=== PATIENT | male | born 1945 | race Caucasian/White ===

== ENCOUNTER 2019-05-06 07:07 | Inpatient (IN) ==
[2019-04-30 16:43] LABS: Appearance,Urine CLEAR; Bacteria,Urine 0 /hpf (0); Bilirubin,Urine NEG (NEG); Color,Urine YELLOW; Culture Indicated,Urine NO; Glucose,Urine (UA) 50 mg/dL (NEG); Ketones,Urine NEG (NEG); Leukocyte Esterase,Urine NEG /uL (NEG); Nitrate,Urine NEG (NEG); Protein,Urine 100 mg/dL (NEG); Specific Gravity,Urine 1.015 (1.000-1.035); Urine Blood NEG mg/dL (<0.03); Urine Hyaline Cast 8 /lpf (0-2); Urine RBC 0 /hpf (0-1); Urine Squamous Epithelial Cell 0 /hpf (0-4); Urine WBC 0 /hpf (0-4); Urobilinogen,Urine NEG (NEG)
[2019-04-30 19:50] LABS: Basophils # (Auto) 0.1 K/mcL (0.0-0.3); Eosinophils # (Auto) 0.2 K/mcL (0.0-0.7); Granulocytes % (Auto) 60.1 % (38.0-78.0); Hematocrit 43.5 % (41.0-55.0); Hemoglobin 14.5 g/dL (13.5-16.5); Lymphocytes % (Auto) 24.6 % (15.5-49.0); Mean Cell Volume 87.1 fL (80.0-100.0); Mean Corpuscular HGB Conc 33.3 g/dL (31.0-36.0); Mean Platelet Volume 6.9 fL (7.4-10.4); Monocytes # (Auto) 0.9 K/mcL (0.1-0.9); Monocytes % (Auto) 11.3 % (1.0-12.0); Platelet Count 402 K/mcL (140-440); RBC 4.99 M/mcL (4.50-5.90); Red Cell Distribution Width 13.4 % (11.5-14.5); WBC 8.1 K/mcL (4.5-11.0)
[2019-04-30 19:54] LABS: Blood Urea Nitrogen 35 mg/dl (8-23); Calcium 10.1 mg/dl (8.6-10.4); Carbon Dioxide 26 mmol/L (22-30); Chloride 100 mmol/L (96-108); Glomerular Filtration Rate 26; Glucose 128 mg/dL (70-105)
[~2019-05-06 07:07] MED LIST: IPRATROPIUM/ALBUTEROL 3 ML AMPUL.NEB NEB PRN; SCOPOLAMINE 1 PATCH PATCH TOPICAL PRN; ceFAZolin 2 GM in DEXTROSE 5% IN WATER 50 ML IV SCH
[2019-05-06] MEDS ORDERED: PROPOFOL 200 MG/20 ML VIAL IV ONE (10:55)
[2019-05-06] MEDS ORDERED: DEXAMETHASONE 10 MG/ML VIAL IV ONE (10:55)
[2019-05-06] MEDS ORDERED: KETAMINE 100 MG/ML ML IV ONE (10:55)
[2019-05-06] MEDS ORDERED: LIDOCAINE HCL/PF 100 MG/5 ML SYRINGE IV ONE (10:55)
[2019-05-06] MEDS ORDERED: GLYCOPYRROLATE 0.2 MG/ML VIAL IV ONE (10:55)
[2019-05-06] MEDS ORDERED: PHENYLEPHRINE 10 MG/ML VIAL IV ONE (10:55)
[2019-05-06] MEDS ORDERED: ONDANSETRON 4 MG/2 ML VIAL IV ONE (10:55)
[2019-05-06] MEDS ORDERED: MIDAZOLAM 2 MG/2 ML VIAL IV ONE (10:55)
[2019-05-06] MEDS ORDERED: TRANEXAMIC ACID 1,000 MG/10 ML VIAL IV ONE ×2 (10:55→12:26)
[2019-05-06] MEDS ORDERED: ROPIVACAINE HCL/PF 30 ML VIAL IJ ONE (10:55)
[2019-05-06] MEDS ORDERED: 0.9 % SODIUM CHLORIDE 9 ML, KETOROLAC 30 MG, ROPIVACAINE HCL/PF 49.5 ML, EPINEPHrine 0.... IJ SCH (11:00)
[2019-05-06] MEDS ORDERED: GENTAMICIN SULFATE 800 MG/20 ML VIAL IR ONE (11:39)
[2019-05-06] MEDS ORDERED: MEPERIDINE 25 MG/ML SYRINGE IV PRN (12:10)
[2019-05-06] MEDS ORDERED: ACETAMINOPHEN 1,000 MG/100 ML BOTTLE IV ONE (12:10)
[2019-05-06] MEDS ORDERED: ONDANSETRON 4 MG/2 ML VIAL IV PRN ×2 (12:10→12:26)
[2019-05-06] MEDS ORDERED: IPRATROPIUM/ALBUTEROL 3 ML AMPUL.NEB NEB PRN (12:10)
[2019-05-06] MEDS ORDERED: fentaNYL 100 MCG/2 ML VIAL IV PRN (12:10)
[2019-05-06] MEDS ORDERED: METHOCARBAMOL 1,000 MG/10 ML VIAL IV PRN (12:10)
[2019-05-06] MEDS ORDERED: LACTATED RINGERS 1,000 ML IV SCH (12:15)
[2019-05-06] MEDS ORDERED: FLEETS ADULT ENEMA PR PRN (12:26)
[2019-05-06] MEDS ORDERED: HYDROcodone/APAP 10/325MG TABLET PO PRN (12:26)
[2019-05-06] MEDS ORDERED: BENZOCAINE/MENTHOL 1 LOZENGE PO PRN (12:26)
[2019-05-06] MEDS ORDERED: POLYETHYLENE GLYCOL 3350 17 GM PACKET PO PRN (12:26)
[2019-05-06] MEDS ORDERED: MAGNESIUM HYDROXIDE 30 ML ORAL.SUSP PO PRN (12:26)
[2019-05-06] MEDS ORDERED: METHOCARBAMOL 750 MG TABLET PO PRN (12:26)
[2019-05-06] MEDS ORDERED: BISACODYL 10 MG SUPP.RECT PR PRN (12:26)
--- NOTE | 2019-05-06 12:38 | Brief Operative Note ---
Date of procedure: 05/06/19 Pre-op diagnosis: DJD right knee Post-op diagnosis: same Procedure: R ELEN TKR Grafts/Implants: Yes (triathlon right knee) Anesthesia: SAMMA Surgeon: Martin Hylton Slope Hoist Operator: Neville Weems Estimated blood loss (cc): 50 Tourniquet Time (Minutes): 60 Specimens Removed/Pathology: none sent Condition: stable Disposition: PACU
--- NOTE | 2019-05-06 13:29 | XRay Report ---
CLINICAL INFORMATION: Post-op total knee. COMPARISON: None. FINDINGS: Total hip prostheses is anatomically aligned. No osseous abnormality. Periarticular gas and soft tissue swelling seen as expected. IMPRESSION: Negative Interpreted and Authenticated by: Romel James 05/06/19
[2019-05-06] MEDS: 0.9 % SODIUM CHLORIDE 1,000 ML IV SCH (13:41)
[2019-05-06] MEDS: 0.9 % SODIUM CHLORIDE 10 ML SYRINGE IV SCH ×2 (13:51→21:19)
[2019-05-06] MEDS: glipiZIDE 5 MG TABLET PO SCH (17:25)
[2019-05-06] MEDS: ceFAZolin 1 GM VIAL IV SCH (17:25)
[2019-05-06] MEDS ORDERED: metFORMIN 500 MG TABLET PO SCH (17:30)
[2019-05-06] MEDS ORDERED: SENNOSIDES 1 TABLET PO SCH (21:00)
[2019-05-06] MEDS: DOCUSATE SODIUM 100 MG CAPSULE PO SCH (21:18)
[2019-05-06] MEDS: ASPIRIN 81 MG TAB.CHEW PO SCH (21:18)
--- NOTE | 2019-05-06 23:48 | Internal Medicine Consult Note ---
Medical - CN: HPI - Data of Consult Patient: known to practice within the last 3 years Consult date: 05/06/19 Requesting physician: Martin Hylton Primary Care Provider: Rajendra Carlisle MD - Consult Narrative Reason for consult: uncontrolled blood pressure History of present illness: Mr. Murphy is a 73 year old M with a history of high blood pressure and a type 2 diabetes who underwent a right knee replacement today by Dr. Hylton. After the procedure, hospitalist consult was requested by Dr. Hylton due to uncontrolled blood pressure. When I saw this patient after the procedure in patient room, patient was fine. he complains of mild difficulty urinating. Otherwise he denied medical complaints. No chest pain, shortness breath, dizziness, abdominal pain, palpitation, headache, or dysuria. The pain from right knee control. Afebrile, pulse 111, respirations 18, blood pressure 177/95, saturation 95% on room air. CC: Martin Hylton - Constitutional Constitutional: Present: as per HPI - EENT Eyes: Present: as per HPI - Cardiovascular Cardiovascular: Present: as per HPI - Respiratory Respiratory: Present: as per HPI - Gastrointestinal Gastrointestinal: Present: as per HPI - Musculoskeletal Musculoskeletal: Present: as per HPI - Integumentary Integumentary: Present: as per HPI - Neurological Neurological: Present: as per HPI - Psychiatric Psychiatric: Present: as per HPI - Endocrine Endocrine: Present: as per HPI - Hematologic/Lymphatic Hematologic/Lymphatic: Present: as per HPI Medical - CN: PMH Medical history: High blood pressure and type 2 diabetes Family history: reviewed and not pertinent (Mother had a melanoma; father had a heart attack.) Smoking status: Former smoker Drug use: none Medical - CN: Meds Home Medications Medication Instructions Recorded Confirmed Type Aspirin 81 mg PO DAILY 03/10/19 04/30/19 History Multivit,Ther Iron,Ca,FA & Min 1 tab PO DAILY 03/10/19 04/30/19 History [Multivitamin W/Minerals] Vitamin D3 2,000 unit PO DAILY 03/10/19 04/30/19 History glipiZIDE [Glucotrol] 5 mg PO BIDAC 03/10/19 04/30/19 History esomeprazole magnesium 20 mg 20 mg PO QDAY 03/22/19 04/30/19 History capsule,delayed release lisinopril 20 1 tab PO QDAY tab 04/19/19 04/30/19 History mg-hydrochlorothiazide 12.5 mg tablet metformin 500 mg tablet 500 mg PO BID #60 tab 04/19/19 04/30/19 Rx Allergies Allergy/AdvReac Type Severity Reaction Status Date / Time No Known Drug Allergies Allergy Verified 04/30/19 14:07 Medical - CN: Exam - Constitutional Vitals: Temp Pulse Resp BP Pulse Ox 98.4 F 110 H 20 159/88 95 05/06/19 23:26 05/06/19 23:26 05/06/19 23:26 05/06/19 23:26 05/06/19 23:26 General appearance: no acute distress - Head Head exam: Present: atraumatic, normocephalic - Eye Eye exam: Absent: scleral icterus (Right eye blind) - ENT ENT exam: Present: normal exam - Neck Neck exam: Present: normal inspection - Respiratory Respiratory exam: Present: CTAB - Cardiovascular Cardiovascular exam: Present: normal rate and rhythm, systolic murmur - GI/Abdominal GI/Abdominal exam: Present: normal bowel sounds, soft. Absent: tenderness - Extremities Exam Extremities exam: Absent: Michael's sign (Surgical dressing dry) - Neurological Exam Neurological exam: Present: alert, oriented X3. Absent: motor sensory deficit (No neurological deficit) - Psychiatric Psychiatric exam: Present: normal affect, normal mood Medical - CN: Result - Labs CBC & Chem 7: 04/30/19 14:33 04/30/19 14:33 Medical - CN: A/P (1) CKD (chronic kidney disease) Status: Chronic (2) Diabetes Status: Chronic (3) Hypertension Status: Chronic - Narrative A/P Narrative: Assessment: 1. DJD right knee, s/p right knee replacement by Dr. Hylton - 05/06/2019 2. DM type 2 3. HTN, uncontrolled 4. Tachycardia 5. CKD? 6. BPH Plan: 1. Post op management including pain control and DVT prophylaxis by orthopedic team 2. Diabetic diet, continue home glipizide 5 mg twice daily and insulin sliding scale We will hold metformin since patient has CKD. Adjust medication based on blood sugar level 3. Continue HCTZ but I will hold lisinopril since creatinine elevated but we do not know the chronicity. We will add metoprolol and amlodipine. Monitor blood pressure 4. EKG, troponin, TSH, BNP 5. Repeat renal function in the morning 6. Patient possibly has BPH. I will start tamsulosin since he has symptomatic BPH 7. DVT prophylaxis: By Ortho team 8. CODE STATUS: Full
[2019-05-06] MEDS ORDERED: hydrALAZINE 20 MG/ML VIAL IV PRN (23:49)
[2019-05-07] MEDS ORDERED: amLODIPine 5 MG TABLET ONE (00:07)
[2019-05-07] MEDS ORDERED: METOPROLOL SUCCINATE 50 MG TAB.XL.24H PO ONE (00:07)
[2019-05-07] MEDS: METOPROLOL SUCCINATE 25 MG TAB.XL.24H PO SCH ×2 (00:11→09:02)
[2019-05-07] MEDS: amLODIPine 5 MG TABLET PO SCH ×2 (00:12→09:03)
[2019-05-07] MEDS ORDERED: INSULIN LISPRO 1 UNIT/0.01 ML UNIT SQ ONE (00:48)
[2019-05-07] MEDS: INSULIN LISPRO 1 UNIT/0.01 ML UNIT SQ SCH ×3 (00:50→12:25)
[2019-05-07] MEDS: 0.9 % SODIUM CHLORIDE 1,000 ML IV SCH (02:39)
[2019-05-07] MEDS: ACETAMINOPHEN W/CODEINE #3 1 TABLET PO PRN ×2 (03:00→09:12)
[2019-05-07] MEDS: ceFAZolin 1 GM VIAL IV SCH (03:00)
[2019-05-07 06:12] LABS: Hematocrit 35.1 % (41.0-55.0); Hemoglobin 11.6 g/dL (13.5-16.5)
[2019-05-07] MEDS: 0.9 % SODIUM CHLORIDE 10 ML SYRINGE IV SCH (06:51)
[2019-05-07] MEDS: glipiZIDE 5 MG TABLET PO SCH (07:10)
[2019-05-07 07:21] LABS: Thyroid Stimulating Hormone 0.53 uIU/ml (0.27-5.01); proBNP 205.4 pg/ml (0-125)
--- NOTE | 2019-05-07 07:27 | Discharge Summary ---
Providers - Providers Patient information: Note initiated : 05/07/19 at 7:23 am Service Date, if different from initiated Date: [] Patient: Matthew Murphy 73 y/o M admitted on 05/06/19 for Right Robotic Total Knee Arthroplasty. Chief Complaint: [] Date of admission: 05/06/19 Discharge date: 05/07/19 Hospitalization Hospital Course: Patient was admitted after surgery for pain control and PT. He had some issues with hypertension and the hospitalists consulted for medicine purposes. He will be discharged with blood pressure. Discharge diagnosis: s/p right total knee arthroplasty Exam - Exam Incision healing: Yes Incision draining: No Weight bearing status: full Range of motion: 0-90 Ortho Discharge - TKA - Patient Instructions Diet: NPO Activity: weight bearing as tolerated Total Knee Protocol: For Total Knee: Start ROM SHERIDAN with stationary bike or rocking chair. Work on gaining full extension of knee. Posterior dislocation precautions provided. Hip abductor strengthening and gait training instructions provided. Apply Cryocuff as instructed. Dressing Care: Aquacel Ag - leave on for 5 days - Follow Up Plan Disposition: Home, Self-Care Plan of Treatment: Follow up in [address] thomas catheter if unable to void. Follow up with urology as needed. Prognosis: Good Rehab Potential: Good I certify that the patient requires SNF services: No Overall status at discharge: patient is progressing back to baseline - Orders For Discharge Prescriptions: Acetaminophen W/Codeine #3 [Tylenol #3] 1 tab PO Q4-6HP PRN #90 tab PRN Reason: Pain Prescription Printed Pending Studies Resuscitation Status Full Code Diet Consistent Carbohydrate Diet Start FriMay 07 6 Acetaminophen/Codeine Phosphate (Tylenol #3) 1 - 2 tab PO Q4HP PRN; Protocol PRN Reason: PAIN LEVEL 3-6 Last Admin: 05/07/19 03:00 Dose: 1 tab Documented by: KRISTIN Amlodipine Besylate (Norvasc) 2.5 mg PO DAILY [facility] Last Admin: 05/07/19 00:12 Dose: Not Given Documented by: KRISTIN Aspirin (Aspirin) 81 mg PO BID [facility] Last Admin: 05/06/19 21:18 Dose: 81 mg Documented by: KRISTIN Diagnostic Test (Pha) (Accu-Chek) 1 each FS ACHS [facility] Last Admin: 05/07/19 07:09 Dose: 1 each Documented by: Admin: 05/07/19 00:40 Dose: 1 each Documented by: KRISTIN Docusate Sodium (Colace) 100 mg PO BID [facility] Last Admin: 05/06/19 21:18 Dose: 100 mg Documented by: KRISTIN Glipizide (Glucotrol) 5 mg PO BIDAC [facility] Last Admin: 05/07/19 07:10 Dose: 5 mg Documented by: Admin: 05/06/19 17:25 Dose: 5 mg Documented by: ADDI Sodium Chloride (Sodium Chloride 0.9%) 1,000 mls @ 75 mls/hr IV .[id number] [facility] Last Admin: 05/07/19 02:39 Dose: 75 mls/hr Documented by: Infusion: 05/07/19 02:39 Dose: 75 mls/hr Documented by: Admin: 05/06/19 13:41 Dose: 75 mls/hr Documented by: ADDI Insulin Human Lispro (Humalog) 0 unit SQ ACHS [facility]; Protocol Last Admin: 05/07/19 07:20 Dose: 1 units Documented by: Admin: 05/07/19 00:50 Dose: 3 units Documented by: KRISTIN Methocarbamol (Robaxin) 750 mg PO Q6HP PRN PRN Reason: Muscle Spasm Last Admin: 05/06/19 18:58 Dose: 750 mg Documented by: KRISTIN Metoprolol Succinate (Toprol Xl) 25 mg PO DAILY [facility] Last Admin: 05/07/19 00:11 Dose: Not Given Documented by: KRISTIN Pantoprazole Sodium (Protonix) 40 mg PO QAMAC [facility] Last Admin: 05/07/19 07:10 Dose: 40 mg Documented by: MATHEUS Senna (Senokot) 2 tab PO HS [facility] Last Admin: 05/06/19 21:18 Dose: 2 tab Documented by: KRISTIN Sodium Chloride (Saline Flush) 10 ml IV Q8 [facility] Last Admin: 05/07/19 06:51 Dose: Not Given Documented by: Admin: 05/06/19 21:19 Dose: Not Given Documented by: Admin: 05/06/19 13:51 Dose: Not Given Documented by: ADDI Shift Summary 12/20/19 03:47 Shift Summary by Lyubov Griffin Addendum entered by Lyubov Griffin R.N. 05/07/19 04:03: BP at 0143 was 110/64, HR 92. BP at 0300 was 108/70, HR 84. Original Note: Pt is A&Ox4, a little forgetful. Pt's BP was elevated (running in 180s SBP) & HR was running ~110. Robaxin was given and BP was then running around 160/90. Dr. Hylton was notified and he consulted with the hospitalist. EKG was obtained r/t tachycardia and pt was given Metoprolol XL 25 mg and amlodipine 2.5 mg. Hospitalist also ordered a Troponin, which came back normal (<0.01). Pt is diabetic, so hospitalist ordered Accucheck ACHS & SSI coverage. Pt's HS accucheck was 218 & received 3 units SSI coverage. Pt was only able to void ~100cc, and still had a high PVR, so pt was straight cath'd for second time at 2100 for 650cc. Pre-void bladder scan at ~0305 was 450cc & pt was only able to void 75cc immediately after the scan. Hospitalist ordered Flomax to start this AM. Pt did ambulate in the hallway x1 this shift & used CPM for a bit prior to shift change but was kept at 40 degrees r/t bandage having been reinforced. Pt's dressing to the right knee was reinforced again around 0030 d/t bleeding through the bandage. Using cryocuff & keeping leg straight in bed. Dressing currently CDI. IV to LFA w/NS @ 75 ml/hr. Will update with verbal report. Initialized on 05/07/19 03:47 - END OF NOTE
[2019-05-07] MEDS ORDERED: PANTOPRAZOLE 40 MG TABLET PO SCH (07:30)
[2019-05-07] MEDS ORDERED: TAMSULOSIN 0.4 MG CAPSULE PO ONE (08:08)
--- NOTE | 2019-05-07 08:24 | Operative Note ---
DATE OF OPERATION: 05/06/2019 PREOPERATIVE DIAGNOSIS: Degenerative joint disease of the right knee. POSTOPERATIVE DIAGNOSIS: Degenerative joint disease of the right knee. OPERATION: Right total knee replacement. SURGEON: Martin Hylton M.D. AMBULANCE PARAMEDIC: Neville Weems PA-C . The PA's assistance was required for the safe and efficient completion of the entire case. This provider's expertise and technical skill were required throughout the case. The PA assisted with preoperative coordination, intraoperative retraction, wound closure, dressing and splint application, as well as postoperative documentation and care coordination. ANESTHESIA: General. TOURNIQUET TIME: 65 minutes. SUMMARY OF PROCEDURE: General anesthesia was attained. The right leg was prepped and draped. A thigh-level tourniquet was put up. A midline incision was made from the quadriceps to the tibial tubercle. It was taken down sharply to the quadriceps and medial retinaculum. A midvastus approach was used and the VMO was released as well as the quadriceps and medial retinaculum. The medial release was done. The fat pad was debrided. The menisci were resected. The patella was mobilized laterally. The center of the hip was located on the Matthew by internal rotation of the hip. Two checkpoints were placed. Drill holes were made in the femur and the tibia. Pins were placed followed by the arrays. The registration was then done locating forty anatomical landmarks on the femur and forty on the tibia. The cuts were then made using the guidance of the Matthew. Balancing was done just prior to the cuts as well. We got excellent balancing medially and laterally and flexion and extension gaps. The cuts were made. Bone was removed. Prior to placing the components, the patella was everted. A measured resection was done of the patella, removing 10 mm, bringing the patella down to a 13 of remaining bone. The patella sized to a 36. The surfaces of the bone were irrigated. Block was placed throughout the wound. The components were cemented in. Excess cement was removed. The knee was left in full extension for the curing of the cement. A clamp was used to hold the patella in place during cementation. The tourniquet was let down. Bleeding was minimal. All bleeding was coagulated. The wound was thoroughly irrigated. The quadriceps and medial retinaculum were closed with running Stratafix. The subcutaneous tissue was closed with buried 2-0 Monocryl. The skin was closed with donato. A sterile compressive dressing was applied. The sponge and needle count was correct. The patient tolerated the procedure well and was taken to the recovery room in stable condition. ERICF:alec Job ID: [id number] Doc ID: [id number] Martin Hylton MD
[2019-05-07] MEDS ORDERED: LISINOPRIL/HCTZ 20/12.5MG TABLET PO SCH (09:00)
[2019-05-07] MEDS ORDERED: ASPIRIN 81 MG TAB.CHEW PO SCH (09:00)
[2019-05-07] MEDS ORDERED: TAMSULOSIN 0.4 MG CAPSULE PO SCH (09:00)
[2019-05-07] MEDS ORDERED: HYDROCHLOROTHIAZIDE 12.5 MG CAPSULE PO SCH (09:00)
[2019-05-07] MEDS ORDERED: MULTIVIT,THER IRON,CA,FA & MIN 1 TABLET PO SCH (09:00)
[2019-05-07] MEDS ORDERED: VITAMIN D3 1,000 UNIT TABLET PO SCH (09:00)
[2019-05-07] MEDS ORDERED: LISINOPRIL 20 MG TABLET PO SCH (09:00)
[2019-05-07] MEDS: DOCUSATE SODIUM 100 MG CAPSULE PO SCH (09:02)
[2019-05-07] MEDS: ASPIRIN 81 MG TAB.CHEW PO SCH (09:03)
--- NOTE | 2019-05-07 21:12 | Internal Med Progress Note ---
Medical - PN: Subj Patient information: Note initiated : 05/07/19 at 9:10 pm Service Date, if different from initiated Date: [] Patient: Matthew Murphy 73 y/o M admitted on 05/06/19 for Right Robotic Total Knee Arthroplasty. Chief Complaint: [] Mr. Murphy is a 73 year old M with a history of high blood pressure and a type 2 diabetes who underwent a right knee replacement today by Dr. Hylton. After the procedure, hospitalist consult was requested by Dr. Hylton due to uncontrolled blood pressure. Patient does not have any complaints. Pain is controlled Blood pressure is still not controlled. - Constitutional Vitals: Vital Signs Temp Pulse Resp BP Pulse Ox 97.8 F 84 20 162/89 95 05/07/19 14:00 05/07/19 14:00 05/07/19 14:00 05/07/19 14:00 05/07/19 14:00 Period Temp Pulse Resp BP Sys/Duarte Pulse Ox Last 24 Hr 97.5 F-98.5 F 73-110 16-20 108-169/64-96 92-95 Intake and Output 05/07/19 05/07/19 05/07/19 05:59 13:59 21:59 Intake Total 1623 790 Output Total 75 1075 Balance 1548 -285 Intake & Output: Intake & Output 05/07/19 05/07/19 05/07/19 05:59 13:59 21:59 Intake Total 1623 790 Output Total 75 1075 Balance 1548 -285 Intake: IV 973 Sodium Chloride 0.9% 1,000 ml @ 973 75 mls/hr IV .[id number] [facility] Rx#: [id number] Oral 650 790 Output: Void Amount 75 1075 Other: Meal Lunch Percent of Meal Consumed 100% Feeding Ability Independent Urine Appearance Small Blood Clots Clear Urine Color Bright Yellow Dark Yellow Urine Odor Normal General appearance: no acute distress - Head Head exam: Present: normal inspection - Eye Eye exam: Present: EOMI, PERRL - ENT ENT exam: Present: normal exam - Neck Neck exam: Present: normal inspection - Respiratory Respiratory exam: Present: normal respiratory exam, CTAB - Cardiovascular Cardiovascular exam: Present: normal rate and rhythm. Absent: JVD - GI/Abdominal GI/Abdominal exam: Present: normal bowel sounds, soft. Absent: tenderness - Extremities Exam Extremities exam: Absent: Michael's sign - Neurological Exam Neurological exam: Present: alert, oriented X3. Absent: motor sensory deficit - Psychiatric Psychiatric exam: Present: normal affect Medical - PN: Obj Da - Labs CBC & Chem 7: 05/07/19 05:06 04/30/19 14:33 Labs: Abnormal Lab Results 05/07/19 05/07/19 05:06 05:06 Hgb 11.6 L Hct 35.1 L NT-Pro-B Natriuret Pep 205.4 H Meds: Medications Amlodipine Besylate (Norvasc) 5 mg PO DAILY [facility] Medical - PN: A/P - Time Spent With Patient Total time spent is greater than 50% in coordination of care (as documented) at patient's floor/unit and/or counseling patient: (1) CKD (chronic kidney disease) Status: Chronic (2) Diabetes Status: Chronic (3) Hypertension Status: Chronic - Narrative A/P Narrative: Assessment: 1. DJD right knee, s/p right knee replacement by Dr. Hylton - 05/06/2019 2. DM type 2 3. HTN, uncontrolled 4. Tachycardia 5. CKD? 6. BPH Plan: 1. Post op management including pain control and DVT prophylaxis by orthopedic team 2. Diabetic diet, continue home glipizide 5 mg twice daily and insulin sliding scale We will hold metformin since patient has CKD. Adjust medication based on blood sugar level 3. Continue HCTZ but I will hold lisinopril since creatinine elevated but we do not know the chronicity. Continue metoprolol and increased amlodipine to 5mg daily. Monitor blood pressure 4. troponin -neg, TSH - 0.53, BNP - 205 5. Repeat renal function in the morning 6. Patient possibly has BPH. Continue tamsulosin 7. DVT prophylaxis: By Ortho team 8. CODE STATUS: Full Medical - PN: Qual - Stroke Symptom Onset Unknown: No - VTE Deep Vein Thrombosis/Pulmonary Embolism Present on Admission: No
[2019-05-07] MEDS ORDERED: amLODIPine 5 MG TABLET PO SCH (21:15)
== END 2019-05-07 14:30 | disposition home or self-care (01) | DRG 470 ==
LOC: MEDSUR 07:07
PROVIDERS: ADMIT Orthopaedic Surgery Foot and Ankle Surgery; ATTEND Orthopaedic Surgery Foot and Ankle Surgery